=== PATIENT | male | born 1950 | race Asian ===

== ENCOUNTER 2021-12-22 05:20 | Day surgery (SDC) | payer OTHER ==
[2021-12-17 11:04] VITALS: BMI 26.6
[2021-12-22] MEDS ORDERED: MIDAZOLAM HCL 2 MG/2 ML SINGLE DOSE VIAL ONE (09:15)
[2021-12-22] MEDS ORDERED: ACETAMINOPHEN 325 MG TABLET (FP) PO ONE ×2 (09:50→10:28)
[2021-12-22 10:25] VITALS: BP 127/70; PULSE 60; TEMP 98.2
== END 2021-12-22 10:20 | disposition home or self-care (01) ==
LOC: JASU-SURG 05:20
PROVIDERS: ATTEND Urology
PROC: 0TF4XZZ Fragmentation in Left Kidney Pelvis, External Approach (ICD-10-PCS; principal; 2021-12-22 09:00)
DX: N20.0 Calculus of kidney (principal)

== ENCOUNTER 2024-02-12 04:22 | Day surgery (SDC) | payer OTHER ==
[2024-02-07 13:29] VITALS: BMI 25.5
[2024-02-12 07:36] VITALS: RESP 20
[2024-02-12] MEDS ORDERED: MIDAZOLAM HCL 2 MG/2 ML SINGLE DOSE VIAL ONE (10:25)
[2024-02-12] MEDS ORDERED: FENTANYL CITRATE/PF 50 MCG/ML VIAL ONE ×2 (10:25→10:52)
[2024-02-12 13:03] VITALS: BP 148/67; PULSE 62; TEMP 97.1
== END 2024-02-12 13:03 | disposition home or self-care (01) ==
LOC: JASU-SURG 04:22
PROVIDERS: ATTEND Urology
PROC: 0TF4XZZ Fragmentation in Left Kidney Pelvis, External Approach (ICD-10-PCS; principal; 2024-02-12 09:30)
DX: N20.0 Calculus of kidney (principal)